=== PATIENT | female | born 2000 ===

== ENCOUNTER 2023-07-08 06:39 | Inpatient (IN) | payer BC ==
[2023-07-08] MEDS ORDERED: Tranexamic Acid IN NACL,ISO-OS 1,000 MG in Premix Bag 1 BAG IV PRN (07:37)
[2023-07-08] MEDS ORDERED: Water For Irrigation,Sterile 1,000 ML Container IRR PRN (07:37)
[2023-07-08] MEDS ORDERED: Carboprost Tromethamine 250 MCG/1 mL Vial IM PRN (07:37)
[2023-07-08] MEDS ORDERED: Lidocaine 1% 50 ML MDV INJECT PRN (07:37)
[2023-07-08] MEDS ORDERED: Methylergonovine 0.2 MG/1 ML Amp IM PRN (07:37)
[2023-07-08] MEDS ORDERED: Sodium Chloride 0.9% 2.5 ML Syringe FLUSH PRN ×2 (07:37→17:53)
[2023-07-08] MEDS ORDERED: Butorphanol 2 MG/ML SDV IVPUSH PRN (07:37)
[2023-07-08] MEDS ORDERED: Misoprostol 200 MCG Tab PO PRN (07:37)
[2023-07-08] MEDS ORDERED: Sodium Chloride 0.9% 10 ML Syringe FLUSH PRN ×2 (07:37→17:53)
[2023-07-08] MEDS ORDERED: Sodium Chloride 0.9% 20 ML SDV IV PRN (07:37)
[2023-07-08] MEDS: Lactated Ringers 1,000 ML IV SCH (08:13)
[2023-07-08] MEDS: Ampicillin 2 GM in Sodium Chloride 0.9% 100 ML IV ONE (08:13)
[2023-07-08] MEDS ORDERED: ePHEDrine 50 MG/ML SDV IVPUSH PRN ×2 (08:24)
[2023-07-08 08:35] LABS: HEMATOCRIT 35.2 % (37.0-47.0); HEMOGLOBIN 11.8 g/dL (12.0-16.0); MEAN CORPUSCULAR HEMOGLOBIN 26.9 pg (28.0-32.0); MEAN CORPUSCULAR HGB CONC 33.5 g/dL (32.0-36.0); MEAN CORPUSCULAR VOLUME 80.4 fL (83.0-99.0); MEAN PLATELET VOLUME 9.5 fL (9.4-12.3); PLATELET COUNT,PLT 273 K/uL (150-400); RED BLOOD CELL COUNT 4.38 M/uL (4.10-5.30); WHITE BLOOD CELL COUNT,WBC 9.38 K/uL (3.9-11.3)
[2023-07-08] MEDS ORDERED: Terbutaline 1 MG/ML SDV SUBCUT PRN (11:40)
[2023-07-08] MEDS: Ampicillin 1 GM in Sodium Chloride 0.9% 50 ML IV SCH (12:15)
[2023-07-08] MEDS: Oxytocin/0.9 % Sodium Chloride 30 UNIT/500 ML BAG IV SCH (12:21)
[2023-07-08] MEDS ORDERED: dexmedeTOMIDine HCl 200 MCG/2 ML SDV ONE (16:32)
[2023-07-08] MEDS: Ropivacaine HCl/PF 400 MG in Premix Bag 1 BAG EPIDUR SCH (16:49)
[2023-07-08] MEDS ORDERED: Simethicone 80 MG Tab.Chew PO PRN (17:53)
[2023-07-08] MEDS ORDERED: diphenhydrAMINE 50 MG Cap PO PRN (17:53)
[2023-07-08] MEDS ORDERED: Ondansetron 4 MG/2 ML SDV IVPUSH PRN (17:53)
[2023-07-08] MEDS: Phenylephrine HCl In 0.9% NaCl 1 MG/10 ML Syringe IVPUSH PRN (22:06)
[2023-07-09 04:20] LABS: PH,UMBILICAL ARTERIAL 7.2 (7.18-7.38); PH,UMBILICAL VENOUS 7.357 (7.25-7.45)
[2023-07-09] MEDS: Oxytocin/0.9 % Sodium Chloride 30 UNIT/500 ML BAG IV SCH (04:40)
[2023-07-09] MEDS: Benzocaine/Menthol 20%-0.5% Spray 78 GM Cannister TOP PRN (05:46)
[2023-07-09] MEDS: Witch Hazel Medicated Pads 40/Jar TOP PRN (05:46)
[2023-07-09] MEDS: Lanolin 100% Cream 7 GM Tube TOP PRN (05:47)
[2023-07-09 06:02] LABS: HEMATOCRIT 34.6 % (37.0-47.0); HEMOGLOBIN 11.5 g/dL (12.0-16.0); MEAN CORPUSCULAR HEMOGLOBIN 27.1 pg (28.0-32.0); MEAN CORPUSCULAR HGB CONC 33.2 g/dL (32.0-36.0); MEAN CORPUSCULAR VOLUME 81.4 fL (83.0-99.0); MEAN PLATELET VOLUME 9.7 fL (9.4-12.3); PLATELET COUNT,PLT 263 K/uL (150-400); RED BLOOD CELL COUNT 4.25 M/uL (4.10-5.30); WHITE BLOOD CELL COUNT,WBC 21.82 K/uL (3.9-11.3)
[2023-07-09 06:53] LABS: BAND ABSOLUTE MAN 0.22; BAND PERCENT MAN 1 %; EOSINOPHILS ABSOLUTE MAN 0.22 K/uL (0.00-0.45); EOSINOPHILS PERCENT MAN 1 % (0-6); LYMPHOCYTES ABSOLUTE MAN 0.87 K/uL (1.00-4.80); LYMPHOCYTES PERCENT MAN 4 % (24-44); MONOCYTES ABSOLUTE MAN 0.87 K/uL (0.00-0.80); MONOCYTES PERCENT MAN 4 % (0-8); SEG NEUTROPHILS ABSOLUTE MAN 19.64 K/uL (1.80-7.70); SEG NEUTROPHILS PERCENT MAN 90 % (41-71)
[2023-07-09] MEDS: Acetaminophen 500 MG Tab PO PRN (07:40)
[2023-07-09] MEDS: Docusate Sodium 100 MG Cap PO PRN (07:41)
[2023-07-09] MEDS: Ibuprofen 800 MG Tab PO PRN (07:41)
[2023-07-10] MEDS: Measles, Mumps & Rubella Vaccine 0.5 ML SDV SUBCUT ONE (17:00)
== END 2023-07-10 17:53 | disposition home or self-care (01) | DRG 560 ==
LOC: MW.OBCHECK 06:39 → MW.OB 06:40 → MW.OBCHECK 08:33 → MW.OB 08:34 → OBSVTOIN 07-09 03:34 → MW.OB 07-09 08:03
PROVIDERS: ADMIT Obstetrics & Gynecology; ATTEND Obstetrics & Gynecology
PROC: 10E0XZZ Delivery of Products of Conception, External Approach (ICD-10-PCS; principal; 2023-07-09)
PROC: 3E0DXGC Introduction of Other Therapeutic Substance into Mouth and Pharynx, External Approach (ICD-10-PCS; 2023-07-09)
PROC: 0KQM0ZZ Repair Perineum Muscle, Open Approach (ICD-10-PCS; 2023-07-09)
PROC: 3E0R3BZ Introduction of Anesthetic Agent into Spinal Canal, Percutaneous Approach (ICD-10-PCS; 2023-07-09)
PROC: 00HU33Z Insertion of Infusion Device into Spinal Canal, Percutaneous Approach (ICD-10-PCS; 2023-07-09)
PROC: 3E0334Z Introduction of Serum, Toxoid and Vaccine into Peripheral Vein, Percutaneous Approach (ICD-10-PCS; 2023-07-09)
DX: O42.02 Full-term premature rupture of membranes, onset of labor within 24 hours of rupture (principal); Z37.0 Single live birth; D62 Acute posthemorrhagic anemia; O99.02 Anemia complicating childbirth; O99.344 Other mental disorders complicating childbirth; F41.9 Anxiety disorder, unspecified; F32.A Depression, unspecified; O26.893 Other specified pregnancy related conditions, third trimester; O99.824 Streptococcus B carrier state complicating childbirth; O70.1 Second degree perineal laceration during delivery; O69.1XX0 Labor and delivery complicated by cord around neck, with compression, not applicable or unspecified; Z3A.38 38 weeks gestation of pregnancy; Z28.39 Other underimmunization status; Z67.11 Type A blood, Rh negative
CPT/HCPCS: 01967; 36415; 51702; 59409; 82803; 84112; 85025; 85027; 85460; 86592; 86850; 86900; 86901; A9270-GY; J0290; J2371; J2590; J2790; J2795; J3490; J7120